=== PATIENT | male | born 2000 | race Caucasian/White ===

== ENCOUNTER 2021-02-17 16:00 | Emergency (ER) | payer OTHER ==
[~2021-02-17] VITALS: Ht 175.3 cm; Wt 56.7 kg
[~2021-02-17 16:00] MED LIST: IBUPROFEN 600600 M1 PO
[2021-02-17] MEDS ORDERED: NAPROSYN500 MG PO (17:36)
[2021-02-17 17:55] VITALS: BP 105/69
--- NOTE | 2021-02-18 13:57 | EKG ---
[place] [address] ELECTROCARDIOGRAM REPORT Name: MAUROSLOANE MELTON Enoch Room: [facility]#: [id number] Admission: 02/17/21 Attend Phys: Discharge: 02/17/21 Date of : 2 Date of Service: 02/17/21 1604 Report #: [id number] THIS REPORT FOR: //name// [facility] ED Test Date: 2021-02-17 Test Time: 16:04:44 Pat Name: SLOANE MAURO Department: Room: Gender: Mitigation Supervisor: [facility] : [id number] Requested By: Lora Prather Order Number: [id number] MD: Abdelrahman Madera Measurements Intervals [place] Rate: 80 P: 52 SD: 148 QRS: 80 QRSD: 99 T: 30 QT: 343 QTc: 396 Interpretive Statements Sinus rhythm ST elev, probable normal early repol pattern No previous ECG available for comparison Electronically Signed On 02-18-2021 13:57:43 CDT by Abdelrahman Madera [email or web address] <ELECTRONICALLY SIGNED> By: Abdelrahman Madera MD, [facility] 02/18/21 1357 1604 1604 Abdelrahman Madera MD, [facility] /EPI
== END 2021-02-17 17:55 | disposition home or self-care (01) ==
LOC: M.ERS 16:00
DX: R07.89 Other chest pain (principal); R06.02 Shortness of breath